=== PATIENT | female | born 1950 | race Caucasian/White ===

== ENCOUNTER 2024-05-09 10:40 | Emergency (ER) | payer MEDICARE, OTHER ==
--- NOTE | 2024-05-09 11:04 | ED Physician Documentation ---
PD HPI SKIN - Stated complaint Stated Complaint: RIGHT ARMPIT RASH - Chief complaint Chief Complaint: Wound - Additional information Additional information: 74-year-old female with history of hypertension from out of town here on medication presents emergency department for right posterior auxiliary rash. She says that she noticed about a week ago and is in a small clustered pattern she said that she has had no fevers or chills describes the pain as mild and subtle but it is very sharp and stinging at about a 2 or 3 out of 10 when the pain is there it comes and goes. No recent illnesses no medication changes she has never had a rash like this before, It has not gotten better and it has not gotten worse. PD PAST MEDICAL HISTORY - Past Medical History Past Medical History: Yes Cardiovascular: Hypertension - Past Surgical History Past Surgical History: No - Present Medications Home Medications: Ambulatory Orders Medication Instructions Recorded Confirmed valACYclovir [Valtrex] 1,000 mg PO TID 7 Days #42 tablet 05/09/24 - Allergies Allergies/Adverse Reactions: Allergies Allergy/AdvReac Type Severity Reaction Status Date / Time No Known Drug Allergies Allergy Verified 05/09/24 10:46 - Social History Does the pt smoke?: No Smoking Status: Never smoker Does the pt drink ETOH?: Yes Does the pt have substance abuse?: No - Immunizations Immunizations are current?: Yes PD ED PE NORMAL - Vitals Vital signs reviewed: Yes - General General: Alert and oriented X 3, No acute distress, Well developed/nourished - Derm Derm: Other (Right lateral/posterior axillary region with vesicular rash in about a 3 x 4 cm with no purulent drainage no erythema surrounding rash.) Results - Vitals Vitals: Vital Signs - 24 hr 05/09/24 05/09/24 10:46 11:48 Temperature 37 C 36.9 C Heart Rate 91 90 Respiratory 18 16 Rate Blood Pressure 148/85 H 140/92 H O2 Saturation 95 99 PD Medical Decision Making - ED course ED course: 74-year-old female presents emerged department for rash to her skin in her lateral axillary region to the posterior portion of her armpit. The rash appears to be a vesicular and within a dermatome. Patient does report that it is painful but not severe and she feels like she is able to tolerate the pain without any difficulty. Most likely this is shingles versus herpes simplex. I started her on valacyclovir here in the emergency department and gave her prescription of valacyclovir sent to her preferred pharmacy. She was informed about infection risk as well as return precautions. Taught to keep it covered as this is infectious and contagious patient understands says that she has been keeping it covered thus far. Patient told to follow-up with her primary care provider upon return to her home and taught how to manage rash. All questions answered patient safe for discharge. Departure - Departure Disposition: Home, Self Care Clinical Impression: Shingles rash Qualifiers: Herpes zoster complications: without complications Qualified Code(s): B02.9 - Zoster without complications Instructions: Shingles Herpes Zoster, ED Shingles Prescriptions: valACYclovir [Valtrex] 1,000 mg PO TID 7 Days #42 tablet Comments: Thank you for trusting us with your care it does appear that you have shingles in your right armpit. This is contagious by skin or by breathingn once the rash has crusted over you are no longer contagious. Keep the rash covered to reduce the risk of spreading the virus to others and avoid contact with immunocompromised individuals as well as people who have never had chickenpox or shingles. If continue first dose of antiviral here in the emergency department and you have a paper prescription that you can take to any pharmacy to get this medication filled. If it starts to get worse or if he starts to notice any fevers or chills or severe worsening pain please present to your primary care provider soon as possible. Forms: PCP List Discharge Date/Time: 05/09/24 11:49
[2024-05-09] MEDS: valACYclovir 500 MG TABLET PO STA (11:44)
[2024-05-09 11:54] VITALS: BP 140/92; O2SAT 99
== END 2024-05-09 11:49 | disposition home or self-care (01) ==
LOC: ED 10:40
DX: B02.9 Zoster without complications (principal)
CPT/HCPCS: 99283; A9270